=== PATIENT | female | born 1940 ===

== ENCOUNTER → 2017-07-31 | Outpatient (CLI) | payer MEDICARE, OTHER ==
[~2017-07-31] MED LIST: AMIT10TA PO; ASPI-482 PO; CHOL2000 PO; CITA10TA4 PO; CRESTOR5 MG PO; CYAN10005 PO; FLUT1DIS3 IH; GABA-585 PO; HYDR-2762 PO; IOHEXOL 180 MG/ML 10 ML VIAL. ONE; LOSA1TAB22 PO; MELA3TAB43 PO; UBID100C40 PO; methylPREDNISolone ACETATE 40 MG/ML VIAL. ONE; methylPREDNISolone ACETATE 80 MG/ML VIAL. ONE
--- NOTE | 2017-07-31 13:30 | PAIN ---
DATE OF SERVICE: 07/31/2017 DIAGNOSES: Lumbar radiculopathy with lumbar spinal stenosis, spondylosis and post-lumbar laminectomy syndrome. HISTORY OF PRESENT ILLNESS: The patient is a 76-year-old female who returns for followup status post previous caudal epidural steroid injections, most recently was in 09/2016. The patient did very well with about 75% overall improvement with injections last winter, but now, pain returning in the low back and into the bilateral lower extremities, mostly in the back, though a little worse on the right than the left into the posterior gluteus, posterior thigh. The patient reports she has recently had her right knee replaced as well in January of this year. She reports no new motor or sensory deficits, no new bowel or bladder incontinence or other complaints, still significant pain in the back and lower extremities, again worse on the right than the left but present bilaterally. The patient reports it is worse with standing, change in positions, much better with sitting or lying down, it has not awaken her from sleep at all and feels much better when she is off her feet. Her right knee is doing quite a bit better, but the back pain is now more noticeable. The patient reports it is aching, cramping, constant, severe, rates a 9 on a scale of 10 at its worst, 8 on average and a 5 at its least, is a 5 today. PAST MEDICAL HISTORY: Significant for osteoporosis, hypertension, arthritis, cataracts and bronchitis. PREVIOUS SURGERY: Include a recent right total knee replacement January of this year, ankle fusion in 1997, lumbar fusion in 2011 with instrumentation and a right wrist surgery in the past, also bilateral cataract extractions. CURRENT MEDICATIONS: Updated and well documented on the patient's chart. REVIEW OF SYSTEMS: Positive for those items mentioned in history of present illness. All systems reviewed and otherwise negative. FAMILY HISTORY: Significant for no major medical problems or conditions she is aware of. SOCIAL HISTORY: The patient does not smoke, does not drink alcohol. Lives locally and is currently retired. ALLERGIES: THE PATIENT IS ALLERGIC TO CEPHALOSPORINS AND SIMVASTATIN. PHYSICAL EXAMINATION: VITAL SIGNS: Today, the patient's blood pressure is 141/68, pulse 103, respirations are 16, temperature is 97.2 degrees Fahrenheit, height is 5 feet 5 inches. Weight is 191 pounds. GENERAL: The patient is awake, alert, oriented, appropriate, very pleasant demeanor. HEENT: Shows normocephalic, atraumatic. Extraocular movements are intact and symmetrical. Oral cavity shows mucous membranes moist and pink. Dentition is intact. NECK: Shows anterior throat supple without palpable lymphadenopathy noted. Swallow reflex is symmetrical. CHEST: Shows normal on inspection. Breath sounds clear to auscultation bilaterally. HEART: Shows S1 and S2 clear. ABDOMEN: Soft, nontender, nondistended. No palpable organomegaly. There is no rebound or guarding demonstrated. BACK: The patient's back shows spine grossly in midline, slight exaggeration of thoracic kyphosis and flattening of lumbar lordotic curvature. Well healed surgical scars noted in the lumbar distribution. Lumbar paraspinous muscle shows some [id number] tenderness with palpation bilaterally but only diffusely without radiation. No tenderness over the sacrum or sacroiliac regions. The patient shows good rotational motion both laterally as well as extension and flexion of lumbar spine without significant pain reported. EXTREMITIES: Lower extremities show deep tendon reflexes 1+ in the patellar and tendo calcaneus tendons. Motor exam is strong with approximately 4 on a scale of 5, but is symmetrical with dorsiflexion, extension, quadriceps and hamstring flexion and equal bilaterally. Peripheral pulses are 1+ posterior tibial. No peripheral edema is noted bilaterally as well. Options were discussed with the patient. The patient's old chart was reviewed as her current medication regimen updated. Current review of systems is updated today as noted and we will proceed with a caudal approach epidural steroid injection today. She has done very well with these in the past with fluoroscopic guidance. Risks were again discussed including, but not limited to bleeding, infection, possibility of epidural hematoma and subsequent neurologic compromise, dural puncture, headaches, spinal cord and/or nerve damage, side effects of steroid medication and poor results regarding pain control. The patient understands and wished to proceed. The patient will return to clinic in approximately 2 weeks for followup, was counseled on return appointment, activity level and side effects to be aware of. DIAGNOSIS: Lumbar radiculopathy with lumbar spinal stenosis, spondylosis and post-lumbar laminectomy syndrome. PROCEDURE: Lumbar epidural steroid injection, caudal approach using C-arm fluoroscopic guidance under sterile prep and drape using local anesthetic. MEDICATIONS INJECTED: Total of 120 mg Depo-Medrol plus 10 mL preservative-free normal saline, 2 mL of Isovue for contrast. CONDITION AT DISCHARGE: Stable. The patient tolerated procedure well, had no complications. KATHERINE DUNCAN MD DR: RUPERT/nita JOB#: [id number] / [id number]
== END | disposition home or self-care (01) ==
LOC: PNCL 10:46
PROVIDERS: ATTEND Anesthesiology
DX: M47.26 Other spondylosis with radiculopathy, lumbar region (principal); M48.061 Spinal stenosis, lumbar region without neurogenic claudication; M96.1 Postlaminectomy syndrome, not elsewhere classified; M81.0 Age-related osteoporosis without current pathological fracture; I10 Essential (primary) hypertension; M19.91 Primary osteoarthritis, unspecified site; Z88.1 Allergy status to other antibiotic agents; Z88.8 Allergy status to other drugs, medicaments and biological substances
CPT/HCPCS: 62323; J1030; J1040